=== PATIENT | female | born 1950 | race Caucasian/White ===

== ENCOUNTER 2023-10-18 15:48 | Emergency (ER) | payer MEDICARE ==
[~2023-10-18] VITALS: Ht 160 cm; Wt 72.6 kg
[2023-10-18 16:40] LABS: BASOPHILS ABSOLUTE AUTO 0.05 K/mm3 (0.00-0.23); BASOPHILS PERCENT AUTO 1 % (0-2); EOSINOPHILS ABSOLUTE AUTO 0.18 K/mm3 (0.00-0.68); EOSINOPHILS PERCENT AUTO 2 % (0-6); Hematocrit 45.4 % (33.0-51.0); IMMATURE GRAN ABSOLUTE AUTO 0.02 K/mm3 (0.00-0.10); IMMATURE GRAN PERCENT AUTO 0 % (0-1); LYMPHOCYTES PERCENT AUTO 38 % (21-46); MONOCYTES ABSOLUTE AUTO 0.49 K/mm3 (0.16-1.47); MONOCYTES PERCENT AUTO 6 % (4-13); Mean Corpuscular HGB 32.1 pg (26.0-34.0); Mean Corpuscular HGB Conc 35.2 g/dL (31.5-36.5); Mean Corpuscular Volume 91 fL (80-100); Mean Platelet Volume 10.7 fL (9.1-12.4); NEUTROPHILS ABSOLUTE AUTO 4.26 K/mm3 (1.96-9.15); NEUTROPHILS PERCENT AUTO 53 % (41-73); Platelet Count 261 K/mm3 (150-400); RDW Coefficient Variation 12.1 % (11.7-14.2); RDW Standard Deviation 40.3 fL (35.1-46.3); Red Blood Cell Count 4.99 M/mm3 (3.80-5.20)
[2023-10-18 17:10] LABS: Albumin, Blood 3.6 g/dL (3.4-5.0); Albumin/Globulin Ratio 0.9 (0.8-1.8); Bilirubin, Total 0.5 mg/dL (0.1-1.0); Bun/Creatinine Ratio 23.2 (12.0-20.0); Calcium, Blood 9.6 mg/dL (8.5-10.1); Creatinine, Blood 0.69 mg/dL (0.40-1.00); Globulin, Blood 4.2 g/dL (2.2-4.0); Potassium, Blood 4.5 mmol/L (3.5-5.5); Total Protein, Blood 7.8 g/dL (6.4-8.2)
[2023-10-18] MEDS ORDERED: Meclizine HCl 25 MG Tab PO ONE (18:20)
[2023-10-18] MEDS ORDERED: MECL25 PO (19:28)
[2023-10-18 19:30] VITALS: BP 141/97
== END 2023-10-18 19:40 | disposition home or self-care (01) ==
LOC: ER 15:48
PROVIDERS: Physician Assistant
DX: H83.09 Labyrinthitis, unspecified ear (principal)
CPT/HCPCS: 70450; 71046; 80053; 84484; 85025; 93005; 93010; 99285-25; A9270

== ENCOUNTER → 2025-08-05 | Outpatient (CLI) | payer MEDICARE ==
[~2025-08-05] MED LIST: MECL25 PO
[2025-08-05 14:06] LABS: Source, Urine Clean Catch
[2025-08-05 15:39] LABS: Bilirubin, Urine Neg (Neg); Color, Urine Yellow (P-Yellow); Glucose Qualitative, Urine Neg (Neg); Ketones, Urine Neg (Neg); Leukocyte Esterase, Urine 1+ (Neg); Protein, Urine 1+ (Neg); Specific Gravity, Urine 1.020 (1.003-1.022); Urobilinogen, Urine NORM (Normal)
[2025-08-05 15:53] LABS: Red Blood Cells, Urine 0-2 /hpf (0-2)
== END ==
LOC: LAB 13:33 → LAB SHORT 13:33
PROVIDERS: Family Medicine
DX: R35.0 Frequency of micturition (principal); M25.561 Pain in right knee; M25.562 Pain in left knee; R00.2 Palpitations
CPT/HCPCS: 36415; 80053; 81001; 83036; 83735; 84100; 84443; 84550; 85025; 87086